=== PATIENT | female | born 1990 | race Asian ===

== ENCOUNTER 2017-05-08 13:05 | Observation (INO) | payer OTHER ==
[~2017-05-08] VITALS: Ht 165.1 cm; Wt 50.0 kg
[2017-05-08] MEDS ORDERED: SODIUM CHLORIDE 0.9% 1,000 ML IV ONE (15:56)
[2017-05-08 17:07] VITALS: BP 123/82
[2017-05-08] MEDS ORDERED: BUPIVACAINE/PF-EPI 0.25% 1:200K ONE (19:13)
[2017-05-08] MEDS ORDERED: FENTANYL PF 100 MCG/2ML ONE ×3 (19:14→21:02)
[2017-05-08] MEDS ORDERED: OXYcodone 5 MG/5 ML ORAL.SOL UDC PO PRN (19:30)
[2017-05-08] MEDS ORDERED: PROMETHAZINE 25 MG/ML, 1ML IV PRN (19:30)
[2017-05-08] MEDS ORDERED: HYDROmorphone 1 MG/ML, 1ML IV PRN (19:30)
[2017-05-08] MEDS ORDERED: ONDANSETRON 2MG/ML, 2ML IVPush PRN (19:30)
[2017-05-08] MEDS ORDERED: DEXAMETHASONE 4 MG/ML, 1ML ONE (19:39)
[2017-05-08] MEDS ORDERED: PROPOFOL 10 MG/ML, 20ML ONE (19:39)
[2017-05-08] MEDS ORDERED: ROCURONIUM 10 MG/ML ONE (19:39)
[2017-05-08] MEDS ORDERED: ONDANSETRON 2MG/ML, 2ML ONE (19:39)
[2017-05-08] MEDS ORDERED: CEFAZOLIN 1,000 MG ONE (19:39)
[2017-05-08] MEDS ORDERED: LACTATED RINGERS 1,000 ML IV SCH (20:51)
[2017-05-08] MEDS ORDERED: MEPERIDINE/PF 25MG/0.5ML ONE (20:52)
[2017-05-08] MEDS ORDERED: MEPERIDINE/PF 25MG/0.5ML IVPush PRN (21:00)
[2017-05-08] MEDS ORDERED: morphine SULFATE 10 MG/ML, 1ML IVPush PRN (21:00)
[2017-05-08] MEDS ORDERED: OXYcodone/APAP 5/325MG TABLET PO PRN (21:00)
[2017-05-08] MEDS ORDERED: KETOROLAC 30 MG/1 ML IVPush PRN (21:00)
[2017-05-08] MEDS ORDERED: KETOROLAC 30 MG/1 ML ONE (21:03)
[2017-05-08] MEDS: FENTANYL PF 100 MCG/2ML IV PRN ×2 (21:05→21:23)
[2017-05-08] MEDS ORDERED: IBUP200T48 PO (23:03)
[2017-05-08] MEDS ORDERED: OXYC-302 PO (23:04)
== END 2017-05-08 23:04 | disposition home or self-care (01) ==
LOC: ED 15:54 → INTOOBSV 15:55 → EDIP 15:55 → ED 16:27 → UNDODISIN 23:04
PROVIDERS: ADMIT Obstetrics & Gynecology Gynecology; ATTEND Obstetrics & Gynecology Gynecology
DX: O00.10 Tubal pregnancy without intrauterine pregnancy (principal); F12.90 Cannabis use, unspecified, uncomplicated
CPT/HCPCS: 36415; 59151; 86850; 86900; 88305; 99285; G0378; J0690; J1100; J1885; J2175; J2405; J2704; J3010; J7030

== ENCOUNTER 2017-09-27 15:37 | Emergency (ER) | payer OTHER ==
[~2017-09-27] VITALS: Ht 165.1 cm; Wt 54.2 kg
[~2017-09-27 15:37] MED LIST: IBUP200T49 PO; OXYC-302 PO
[2017-09-27 15:45] VITALS: BP 130/97
[2017-09-27 16:46] LABS: CULTURE INDICATED? YES; MICROSCOPIC INDICATED
[2017-09-27 17:13] LABS: ALANINE AMINOTRANSFERASE 18 U/L (12-78); ALBUMIN 3.9 g/dL (3.4-5.0); ANION GAP 11 mmol/L (5-15); CALCIUM 9.2 mg/dL (8.5-10.1); CHLORIDE 105 mmol/L (98-107); CREATININE 0.67 mg/dL (0.55-1.02)
[2017-09-27 17:26] LABS: ALKALINE PHOSPHATASE 54 U/L (45-117); BILIRUBIN,TOTAL 0.5 mg/dL (0.2-1.0)
[2017-09-27 17:33] LABS: BASOPHILS # (AUTO) 0.02 x10^3/uL (0-0.1); BASOPHILS % (AUTO) 0 % (0-1); EOSINOPHILS # (AUTO) 0.08 x10^3/uL (0-0.4); EOSINOPHILS % (AUTO) 1 % (1-7); LYMPHOCYTES # (AUTO) 2.62 x10^3/uL (1-3.4); LYMPHOCYTES % (AUTO) 21 % (22-44); MD NO; MEAN CORPUSCULAR HEMOGLOBIN 29.6 pg (27.0-34.8); MEAN CORPUSCULAR HGB CONC 33.9 g/dL (32.4-35.8); MEAN CORPUSCULAR VOLUME 87.3 fL (80-100); MEAN PLATELET VOLUME 6.6 fL (7.4-10.4); MONOCYTES # (AUTO) 0.67 x10^3/uL (0.2-0.8); MONOCYTES % (AUTO) 5 % (2-9); NEUTROPHILS # (AUTO) 8.96 x10^3/uL (1.8-6.8); NEUTROPHILS % (AUTO) 73 % (42-75); PLATELET COUNT 317 x10^3/uL (130-400); RED CELL DISTRIBUTION WIDTH 13.7 % (9.6-15.2)
== END 2017-09-27 18:37 | disposition home or self-care (01) ==
LOC: ED 18:01
DX: O23.11 Infections of bladder in pregnancy, first trimester (principal); O26.891 Other specified pregnancy related conditions, first trimester; Z3A.11 11 weeks gestation of pregnancy
CPT/HCPCS: 36415; 76801; 80053; 81001; 84702; 85025; 87086; 87147; 99285